=== PATIENT | female | born 1990 | race Two or more races ===

== ENCOUNTER 2023-12-02 16:13 | Emergency (ER) | payer MEDICAID ==
[~2023-12-02] VITALS: Ht 157.5 cm; Wt 71.7 kg
[2023-12-02] MEDS: IV NS 0.9% 1,000 ML BAG IV ONE (16:44)
[2023-12-02] MEDS ORDERED: diphenhydrAMINE HCL 50 MG/ML VIAL ONE (16:47)
[2023-12-02] MEDS ORDERED: KETOROLAC TROMETHAMINE 15 MG/ML VIAL ONE (16:48)
[2023-12-02] MEDS ORDERED: SUMATRIPTAN SUCCINATE 6 MG/0.5 ML VIAL SQ ONE (16:48)
[2023-12-02] MEDS ORDERED: METOCLOPRAMIDE HCL 10 MG/2 ML VIAL ONE (16:48)
[2023-12-02] MEDS: SUMATRIPTAN SUCCINATE 6 MG/0.5 ML VIAL SQ ONE (16:55)
[2023-12-02] MEDS: diphenhydrAMINE HCL 50 MG/ML VIAL IV ONE (17:04)
[2023-12-02] MEDS: KETOROLAC TROMETHAMINE 15 MG/ML VIAL IV ONE (17:06)
[2023-12-02] MEDS: METOCLOPRAMIDE HCL 10 MG/2 ML VIAL IV ONE (17:07)
[2023-12-02] MEDS ORDERED: SUMA100T PO (18:14)
[2023-12-02] MEDS ORDERED: KETO10TA2 PO (18:14)
[2023-12-02] MEDS ORDERED: METO-295 PO (18:14)
[2023-12-02 18:37] VITALS: BP 128/68; TEMP 99.1; O2SAT 98
== END 2023-12-02 18:38 | disposition home or self-care (01) ==
LOC: ER 16:21
DX: G43.909 Migraine, unspecified, not intractable, without status migrainosus (principal); Z79.899 Other long term (current) drug therapy; Z60.2 Problems related to living alone
CPT/HCPCS: 99284; 96374; 96375; 96361; 96372; J1200; J3030; J2765; J1885